=== PATIENT | female | born 1960 | race African-American/Black ===

== ENCOUNTER 2021-11-12 06:46 | Day surgery (SDC) | payer MEDICAID ==
[~2021-11-12] VITALS: Ht 166.4 cm; Wt 87.5 kg
[2021-11-12] MEDS ORDERED: ALEVE220 M1 PO (07:49)
[2021-11-12] MEDS ORDERED: MUSCLE RELAXER (07:50)
[2021-11-12] MEDS ORDERED: METFORMIN500 M2 PO (07:51)
[2021-11-12] MEDS ORDERED: INSULIN PEN IJ (07:52)
[2021-11-12 10:26] VITALS: BP 138/86
== END 2021-11-12 10:00 | disposition home or self-care (01) ==
LOC: ORM 06:46
DX: M47.816 Spondylosis without myelopathy or radiculopathy, lumbar region (principal); G89.4 Chronic pain syndrome; Z20.822 Contact with and (suspected) exposure to COVID-19

== ENCOUNTER 2021-12-10 06:51 | Day surgery (SDC) | payer MEDICAID ==
[~2021-12-10 06:51] MED LIST: ALEVE220 M1 PO; INSULIN PEN IJ; METFORMIN500 M2 PO; MUSCLE RELAXER
[2021-12-10] MEDS ORDERED: LANTUS100 UNIT (07:52)
[2021-12-10] MEDS ORDERED: TIZANIDINE4 MG PO (07:56)
[2021-12-10 09:09] VITALS: BP 158/105
== END 2021-12-10 09:35 | disposition home or self-care (01) ==
LOC: PO 06:51 → ORM 06:51
PROVIDERS: ATTEND Physical Medicine & Rehabilitation
DX: M47.816 Spondylosis without myelopathy or radiculopathy, lumbar region (principal)